=== PATIENT | male | born 1965 | race Caucasian/White ===

== ENCOUNTER 2023-07-25 11:17 | Day surgery (SDC) | payer OTHER ==
[~2023-07-25] VITALS: Ht 172.7 cm; Wt 126.0 kg
[2023-07-25] VITALS (17 sets, daily range): BP systolic 122–160; BP diastolic 66–94
[~2023-07-25 11:17] MED LIST: ACET500 PO; AMLO5 PO; Actos30 MG PO; FINA5 PO; FISH OIL 1,2001 EAC1 PO; GLIP10ER PO; Glipizide-Metf1 EAC1 PO; Glucophage1000 MG PO; INSULANI; Ibuprofen600 MG PO; Omeprazole20 M1 PO; PRAV20; TRAM50 PO; Zestril40 MG PO
[2023-07-25] MEDS ORDERED: CeFAZolin Sodium 3,000 MG in NS 100 ML IV SCH (11:45)
[2023-07-25] MEDS ORDERED: Lactated Ringer's 1,000 ML IV SCH (11:45)
[2023-07-25] MEDS ORDERED: propofoL 20 ML IV ONE (11:45)
[2023-07-25] MEDS ORDERED: Midazolam HCl 1MG / ML 2ML Vial ONE (11:45)
[2023-07-25] MEDS ORDERED: FentaNYL Citrate 50 MCG/ML 2 ML Injection ONE ×2 (11:45→14:30)
[2023-07-25] MEDS ORDERED: Rocuronium Bromide 10 MG/ML 5ML Injection IV ONE (11:46)
--- NOTE | 2023-07-25 12:09 | NUR ---
PT BLOOD SUGAR IS 52. PT REPORTS NO SYMPTOMS. DR. BERNAL AT BEDSIDE AND AWARE OF PT RESULTS. NO ORDERS AT THIS TIME.
--- NOTE | 2023-07-25 12:18 | NUR ---
History, Chart, Medications and Allergies reviewed before start of procedure. Patient confirms NPO status and agrees with scheduled surgery. Pre-Op teaching done. Pt verbalizes understanding. Lungs clear T/O to Auscultation.
[2023-07-25] MEDS ORDERED: Ketorolac Tromethamine 30mg Vial ONE (12:45)
[2023-07-25] MEDS ORDERED: Dexamethasone Sod Phos 10 MG/ML 1ML VIAL ONE (12:45)
[2023-07-25] MEDS ORDERED: Ondansetron HCl 2 MG / ML 2ML Vial ONE (12:45)
[2023-07-25] MEDS ORDERED: Sugammadex Sodium 200 MG/2ML SDV (100 MG/ML) ONE (12:45)
[2023-07-25] MEDS ORDERED: HYDROmorphone HCl/Pf 1MG SYR ONE (14:42)
[2023-07-25] MEDS ORDERED: OxyCODONE HCL 5 MG TAB PO PRN (15:20)
--- NOTE | 2023-07-25 16:15 | NUR ---
REPEAT CBG 88 AFTER SF PUDDING AND 2 GLASSES OF APPLE JUICE. PT DOES NOT FEEL "LOW", PT STATES HE DOESN'T CHECK HIS SUGAR B/C HE RAN OUT OF SUPPLIES, PT CAN'T REMEMBER WHAT GLUCOMETER HE HAS AND [facility] HAS NO RECORD OF SUPPIES X 1 YEAR. PT ENCOURAGED TO CALL PCP TOMORROW TO GET AN RX FOR MORE SUPPLIES DR. MARTINEZ AWARE OF ALL OF THE ABOVE
--- NOTE | 2023-07-25 16:20 | NUR ---
PT ABLE TO GET UP TO W/C W/ CRUTCHES W/GREAT DIFFICULTY BUT STABLE W/CRUTCHES. PT ENCOURAGE TO COME HOME AND HAVE A HIGH PROTEIN MEAL. PT D/C TO HOME W/SON IN PRIVATE CAR W/ D/C INSTRUCTIONS
== END 2023-07-25 16:25 | disposition home or self-care (01) ==
LOC: ORSCMMR 11:17 → ORD 13:00 → ORSCMMR 13:00 → ORD 14:00 → ORSCMMR 16:25
PROVIDERS: Orthopaedic Surgery
PROC: 0QSG04Z Reposition Right Tibia with Internal Fixation Device, Open Approach (ICD-10-PCS; principal; 2023-07-25 12:00)
PROC: 0QSJ04Z Reposition Right Fibula with Internal Fixation Device, Open Approach (ICD-10-PCS; principal; 2023-07-25 12:00)
DX: S82.852A Displaced trimalleolar fracture of left lower leg, initial encounter for closed fracture (principal); I10 Essential (primary) hypertension; E78.5 Hyperlipidemia, unspecified; K21.9 Gastro-esophageal reflux disease without esophagitis; E11.9 Type 2 diabetes mellitus without complications; W10.9XXA Fall (on) (from) unspecified stairs and steps, initial encounter; Z79.84 Long term (current) use of oral hypoglycemic drugs; Z79.4 Long term (current) use of insulin; Z79.899 Other long term (current) drug therapy; E66.01 Morbid (severe) obesity due to excess calories; Z68.41 Body mass index [BMI] 40.0-44.9, adult
CPT/HCPCS: 82947; A9270; C1713; C1769; J1100; J1170; J1885; J2250; J2405; J2704; J3010; J7120